=== PATIENT | female | born 1945 | race Caucasian/White ===

== ENCOUNTER → 2020-05-03 | Outpatient (CLI) | payer MEDICARE ==
[~2020-05-03] MED LIST: ALPR0.5T6 PO; ATOR20TA37 PO; AZEL137S4 NAS; CALCIUM PO; CETI10TA76 PO; CHOL10003 PO; ESZO2TAB22 PO; JUICE PLUS PO; LEVOTHYROXINE PO; MAGN400O7 PO; RABE20TA26 PO; TRIA1TAB3 PO; ZOLP5TAB6 PO
[2020-05-03 11:48] LABS: BASOPHILS % (AUTO) 1 % (0-1); EOSINOPHILS % (AUTO) 5 % (1-7); LYMPHOCYTES % (AUTO) 25 % (22-44); MEAN CORPUSCULAR HEMOGLOBIN 30.5 pg (27.0-34.8); MEAN CORPUSCULAR HGB CONC 34.6 g/dL (32.4-35.8); MEAN PLATELET VOLUME 7.7 fL (7.4-10.4); MONOCYTES % (AUTO) 6 % (2-9); NEUTROPHILS % (AUTO) 64 % (42-75); PLATELET COUNT 270 x10^3/uL (130-400); RED BLOOD COUNT 4.21 x10^6/uL (3.82-5.3); RED CELL DISTRIBUTION WIDTH 14.3 % (9.6-15.2)
[2020-05-03 11:49] LABS: INTERNATIONAL NORMALIZED RATIO 0.99 (0.93-1.1); PROTHROMBIN TIME 10.5 Seconds (9.6-11.5)
[2020-05-03 11:53] LABS: CALCIUM 9.2 mg/dL (8.5-10.1); CREATININE 0.95 mg/dL (0.55-1.02)
[2020-05-03 11:54] LABS: MD NO
[2020-05-03 12:03] LABS: ANION GAP 2 mmol/L (5-15); CHLORIDE 106 mmol/L (98-107)
[2020-05-03 15:41] LABS: MICROSCOPIC NOT IND
== END | disposition home or self-care (01) ==
LOC: STAR 10:36
PROVIDERS: ATTEND Neurological Surgery
DX: Z01.818 Encounter for other preprocedural examination (principal); M48.061 Spinal stenosis, lumbar region without neurogenic claudication
CPT/HCPCS: 36415; 71046; 80048; 81003; 85025; 85610; 85730; 93005

== ENCOUNTER → 2020-05-05 | Outpatient (CLI) | payer MEDICARE | END | disposition home or self-care (01) | LOC: STAR 09:20 | PROVIDERS: ATTEND Anesthesiology | DX: Z20.828 Contact with and (suspected) exposure to other viral communicable diseases (principal) | CPT/HCPCS: 87635 ==

== ENCOUNTER 2020-05-11 11:19 | Day surgery (SDC) | payer MEDICARE ==
[~2020-05-11] VITALS: Ht 154.9 cm; Wt 64.0 kg
[~2020-05-11 11:19] MED LIST changes: +BACITRACIN 50,000 UNIT ONE; +BUPIVACAINE/PF 0.25% ONE; +EPINEPHRINE 1 MG/ML, 1ML ONE; +VANCOMYCIN 1,000 MG ONE
[2020-05-11] MEDS ORDERED: CHLORHEXIDINE 15 ML UDC MM ONE ×2 (12:30)
[2020-05-11] MEDS ORDERED: FENTANYL PF 250 MCG/5ML ONE (16:15)
[2020-05-11] MEDS ORDERED: MIDAZOLAM 1 MG/ML, 2ML ONE (16:15)
[2020-05-11] MEDS ORDERED: HEPARIN 1,000 UNITS/ML, 30ML ONE (16:34)
== END 2020-05-11 16:45 | disposition home or self-care (01) ==
LOC: OUT 11:19
PROVIDERS: ATTEND Neurological Surgery
DX: Z02.9 Encounter for administrative examinations, unspecified (principal)
CPT/HCPCS: J0171; J1644; J2250; J3010; J3370